=== PATIENT | female | born 1980 | race Hispanic/Latino ===

== ENCOUNTER 2022-06-06 04:42 | Emergency (ER) | payer MEDICARE | END 2022-06-06 05:46 | disposition home or self-care (01) | LOC: CSHERS 04:42 | DX: S60.032A Contusion of left middle finger without damage to nail, initial encounter (principal); W22.8XXA Striking against or struck by other objects, initial encounter ==

== ENCOUNTER 2022-06-24 08:41 | Outpatient (CLI) | payer MEDICARE | END 2022-06-24 08:42 | disposition home or self-care (01) | LOC: CSHMRI 08:41 | PROVIDERS: ATTEND Family Medicine | DX: M54.16 Radiculopathy, lumbar region (principal); M51.36 Other intervertebral disc degeneration, lumbar region | CPT/HCPCS: 72148 ==

== ENCOUNTER 2024-01-24 12:00 | Emergency (ER) | payer MEDICARE, SELFPAY ==
[2024-01-24] MEDS ORDERED: Acetaminophen 500 MG TAB ONE (13:32)
== END 2024-01-24 15:21 | disposition home or self-care (01) ==
LOC: EEVIPCON 12:00 → CSHERS 12:00
DX: T14.8XXA Other injury of unspecified body region, initial encounter (principal); F17.210 Nicotine dependence, cigarettes, uncomplicated; Y04.8XXA Assault by other bodily force, initial encounter
CPT/HCPCS: 71045; 72131; 72170

== ENCOUNTER 2024-07-18 08:28 | Outpatient (CLI) | payer MEDICARE | END 2024-07-18 08:29 | disposition home or self-care (01) | LOC: CSHMRI 08:28 | DX: R92.8 Other abnormal and inconclusive findings on diagnostic imaging of breast (principal) | CPT/HCPCS: C8908 ==